=== PATIENT | male | born 1995 | race Caucasian/White ===

== ENCOUNTER → 2016-09-29 | Outpatient (CLI) | payer OTHER ==
--- NOTE | 2016-09-30 02:46 | REP ---
Clinical: Trauma/ injury . Technique: AP, lateral, bilateral oblique views left fourth digit . Findings: The osseous structures and joint spaces are intact and normal. There is no evidence for acute fracture or dislocation. Surrounding soft tissues are unremarkable. No subcutaneous emphysema or radiodense foreign body. Impression: Normal examination. No acute fracture or dislocation. Signed by David Barber MD 09/30/2016 02:38 A
== END ==
LOC: M WUC 16:37
PROVIDERS: ATTEND Pediatrics
DX: S69.92XA Unspecified injury of left wrist, hand and finger(s), initial encounter (principal); X58.XXXA Exposure to other specified factors, initial encounter; Y92.89 Other specified places as the place of occurrence of the external cause; Y93.89 Activity, other specified; Y99.8 Other external cause status

== ENCOUNTER 2019-03-14 17:09 | Emergency (ER) | payer OTHER, SELFPAY ==
[~2019-03-14] VITALS: Ht 175.3 cm; Wt 84.1 kg
[2019-03-14 17:09] VITALS: BP 158/99
[2019-03-14] MEDS ORDERED: AUGM875T28 PO (17:36)
== END 2019-03-14 17:52 | disposition home or self-care (01) ==
LOC: M ED 17:09
DX: S61.052A Open bite of left thumb without damage to nail, initial encounter (principal); X58.XXXA Exposure to other specified factors, initial encounter; Y92.099 Unspecified place in other non-institutional residence as the place of occurrence of the external cause; Y93.89 Activity, other specified; Y99.9 Unspecified external cause status